=== PATIENT | male | born 1950 | race Caucasian/White ===

== ENCOUNTER → 2016-10-23 | Outpatient (CLI) | payer OTHER ==
[~2016-10-23] MED LIST: ACETAMINOPHEN PO; DIAZEPAM PO; FLEXERIL10 M1 PO; FLEXERIL10 MG PO; LISINOPRIL-HCTZ1 T19 PO; LORTAB 10-5001 EACH PO; MEDROL PO; MOBIC PO; NAPROSYN500 MG PO; NO PRESCRIPTION MEDS; PERCOCET PO; PERCOCET5/325 PO; PREDNISONE PO; SLEEP AIDS; TOPROL XL 50 MG50 MG PO
--- NOTE | ~2016-10-23 | US5 ---
[facility] A Service of [facility] RADIOLOGY TEXT RESULTS PATIENT: KATIE ONOFRE LOCATION: [facility] : 50 UNIT #: [id number] AGE: [address]: ODALYS TIAN APRN SEX: M ORDER DR: [id number] [facility] [address] [place], [place] [address] [id number] O MR#: [id number] Acc #: [id number] NAME: KATIE ONOFRE : 1950 SEX: M STUDY DATE/TIME: 10/23/2016 11:09 UNIT: [facility] ROOM: STUDY DESCRIPTION: US Abdominal Complete Attending Physician: Odalys Tian Aprn Referring Physician: Odalys Tian Aprn Ordering Physician: Odalys Tian Aprn Primary Care Physician: Elsie Ricks M.D. MEDICAL IMAGING REPORT This report is preliminary unless electronic signature is present EXAM Abdominal ultrasound complete 10/23/2016 HISTORY Abdominal distension for 1 year with weight gain, ascites. FINDINGS The liver demonstrates an increase in echotexture with attenuation of the ultrasound beam characteristic of fatty infiltration. No cystic or solid mass lesions were seen in the liver. The intra and extrahepatic bile ducts are not dilated. The gallbladder is normal with no evidence of cholelithiasis, wall thickening or pericholecystic fluid. The common duct measures 2 mm. The pancreas and spleen are normal. The spleen measures 11.8 cm in greatest diameter. The visualized portions of the abdominal aorta and inferior vena cava within normal limits. The kidneys are normal bilaterally. IMPRESSION Fatty infiltration of the liver. Otherwise negative abdominal ultrasound. Dictated by... Wagner Hamilton M.D. THIS IS AN ELECTRONICALLY VERIFIED REPORT Wagner Hamilton M.D. at 10/26/2016 10:14 AM BRANDON/grisel TD: 10/23/2016 19:44 JOB #: [id number] MEDICAL IMAGING REPORT [facility] A Service of [facility] RADIOLOGY TEXT RESULTS PATIENT: KATIE ONOFRE LOCATION: [facility] #: [id number] : 50 UNIT #: [id number] AGE: [address]: ODALYS TIAN APRN SEX: M ORDER DR: Page 1 of 1 COPY
== END | disposition home or self-care (01) ==
LOC: CGUS 10:15
DX: R14.0 Abdominal distension (gaseous) (principal); K76.0 Fatty (change of) liver, not elsewhere classified
CPT/HCPCS: 76700